=== PATIENT | male | born 1945 | race Caucasian/White ===

== ENCOUNTER 2022-09-19 16:08 | Emergency (ER) | payer MEDICARE ==
[~2022-09-19] VITALS: Ht 180.3 cm; Wt 82.6 kg
--- NOTE | 2022-09-19 16:25 | NUR ---
BIB [facility] S/P TRIP/FALL AT A LOCAL [facility], ABRASIONS TO FACE AND LEFT KNEE
--- NOTE | 2022-09-19 16:30 | NUR ---
AT BEDSIDE FOR EVAL
--- NOTE | 2022-09-19 16:40 | NUR ---
WOUND CARE DONE BY EMT
[2022-09-19] MEDS ORDERED: ACETAMINOPHEN ES 500 MG TABLET PO ONE (17:30)
[2022-09-19] MEDS ORDERED: ACETAMINOPHEN ES 500 MG TABLET ONE (17:47)
--- NOTE | 2022-09-19 18:10 | NUR ---
Patient discharged to home in stable condition. Written and verbal after care instructions given. Patient verbalizes understanding of instruction.
[2022-09-19 18:11] VITALS: BP 121/81
== END 2022-09-19 18:12 | disposition home or self-care (01) ==
LOC: ER 16:17
DX: S00.81XA Abrasion of other part of head, initial encounter (principal); S80.212A Abrasion, left knee, initial encounter; G20 Parkinson's disease; Z60.2 Problems related to living alone; W01.0XXA Fall on same level from slipping, tripping and stumbling without subsequent striking against object, initial encounter; Y93.89 Activity, other specified; Y92.89 Other specified places as the place of occurrence of the external cause; Y99.8 Other external cause status
CPT/HCPCS: 70450-TC; 73564-TC